=== PATIENT | male | born 1990 | race Caucasian/White ===

== ENCOUNTER 2023-02-04 21:34 | Inpatient (IN) | payer OTHER ==
[2023-02-04 22:13] VITALS: BMI 22.1
[2023-02-04] MEDS ORDERED: hydrOXYzine PAMOATE 25 MG CAPSULE (FP) PO PRN (23:03)
[2023-02-04] MEDS ORDERED: guaiFENesin 600 MG TABLET.ER (FP) PO PRN (23:03)
[2023-02-04] MEDS ORDERED: MAG HYDROX/AL HYDROX/SIMETH 30 ML UNIT-DOSE CUP PO PRN (23:03)
[2023-02-04] MEDS ORDERED: BENZOCAINE/MENTHOL (CHLORASEPTIC ) LOZENGE MM PRN (23:03)
[2023-02-04] MEDS ORDERED: ACETAMINOPHEN 325 MG TABLET (FP) PO PRN (23:03)
[2023-02-04] MEDS ORDERED: LOPERAMIDE HCL 2 MG CAPSULE PO PRN (23:03)
[2023-02-04] MEDS ORDERED: METHOCARBAMOL 500 MG TABLET PO PRN (23:03)
[2023-02-04] MEDS ORDERED: POLYETHYLENE GLYCOL (HEALTHYLAX) 3350 17 GM PACKET PO PRN (23:03)
[2023-02-04] MEDS ORDERED: ONDANSETRON *ODT* 4 MG TABLET SL PRN (23:03)
[2023-02-04] MEDS ORDERED: BENZONATATE 200 MG CAPSULE PO PRN (23:03)
[2023-02-04] MEDS ORDERED: BISMUTH SUBSALICYLATE 524 MG/30 ML PO PRN (23:03)
[2023-02-04] MEDS ORDERED: NICOTINE 10 MG CARTRIDGE (INHALER) IH PRN (23:03)
[2023-02-04] MEDS ORDERED: NALOXONE HCL 0.4 MG/ML VIAL IM PRN (23:03)
[2023-02-04] MEDS ORDERED: NALOXONE HCL (KLOXXADO) 8 MG SPRAY NS PRN (23:03)
[2023-02-04] MEDS ORDERED: DICYCLOMINE HCL 10 MG CAPSULE PO PRN (23:03)
[2023-02-04] MEDS ORDERED: IBUPROFEN 600 MG TABLET (FP) PO PRN (23:03)
[2023-02-04] MEDS ORDERED: IBUPROFEN 400 MG TABLET (FP) PO PRN (23:03)
[2023-02-04] MEDS ORDERED: MAGNESIUM HYDROX 2400MG/30ML ORAL SUSPENSION 30 ML CUP PO PRN (23:03)
[2023-02-05 09:21] VITALS: BP 128/82; PULSE 75; RESP 18; TEMP 97.7
[2023-02-05] MEDS ORDERED: NICOTINE 14 MG/24 HOURS TOPICAL PATCH TD SCH (10:00)
[2023-02-05] MEDS ORDERED: PRENATAL VITAMINS W/ FOLIC ACID TABLET (FP) PO SCH (10:00)
[2023-02-05 11:53] LABS: HEMATOCRIT 36.5 % (35.4-49); HEMOGLOBIN 12.5 GM/dL (11.7-16.9); MCH 31.4 pg (25.7-33.7); MCHC 34.2 g/dl (32.0-35.9); MEAN CELL VOLUME 91.8 fl (80-96); MEAN PLT VOLUME 8.2 fl (7.5-11.1); PLATELET COUNT 254 10^3/uL (134-434); RBC 3.97 M/mm3 (4.00-5.60); RDW 13.5 % (11.9-15.9); WHITE BLOOD COUNT 7.4 K/mm3 (4.0-10.0)
[2023-02-05 11:58] LABS: POTASSIUM 4.3 mmol/L (3.5-5.1)
[2023-02-05 12:02] LABS: BLOOD UREA NITROGEN 9.7 mg/dL (7-18)
[2023-02-05 12:03] LABS: ALBUMIN 3.4 g/dl (3.4-5.0)
[2023-02-05 12:06] LABS: CREATININE 0.9 mg/dL (0.55-1.3)
[2023-02-05 12:07] LABS: BILIRUBIN,TOTAL 0.7 mg/dL (0.2-1); TOT PROT 6.3 g/dl (6.4-8.2)
[2023-02-05] MEDS ORDERED: THIAMINE HCL 100 MG TABLET (FP) PO SCH (22:00)
[2023-02-05] MEDS ORDERED: MELATONIN 5 MG TABLETS PO SCH (22:00)
== END 2023-02-05 10:22 | disposition home or self-care (01) | DRG 897 ==
LOC: YASAS 21:34 → Y3N 22:35
PROVIDERS: ADMIT Allergy & Immunology; ATTEND Surgery
PROC: HZ2ZZZZ Detoxification Services for Substance Abuse Treatment (ICD-10-PCS; principal; 2023-02-04)
DX: F10.20 Alcohol dependence, uncomplicated (principal); F14.20 Cocaine dependence, uncomplicated; F15.20 Other stimulant dependence, uncomplicated; F17.210 Nicotine dependence, cigarettes, uncomplicated
CPT/HCPCS: 36415; 80053; 85027; 86780; 87635; 93005; 93010